=== PATIENT | female | born 1960 | race Hispanic/Latino ===

== ENCOUNTER 2017-11-11 13:16 | Outpatient (CLI) | payer MEDICAID ==
--- NOTE | 2017-11-12 00:18 | XRay Report ---
FINAL REPORT PROCEDURE: XR KNEE 4+V RT TECHNIQUE: RIGHT knee radiographs, AP, lateral and sunrise views. CPT 52535 HISTORY: RIGHT KNEE PAIN COMPARISON: No prior studies are available for comparison. FINDINGS: Fracture (s) and/or Dislocation(s): None . Alignment: Normal . 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 Soft tissues: There is generalized soft tissue swelling. There is no joint effusion.. Bone mineralization: Normal . Foreign bodies: None . IMPRESSION: There is no fracture or malalignment.. 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 There is generalized soft tissue swelling. There is no joint effusion..
== END 2017-11-11 13:17 | disposition home or self-care (01) ==
LOC: SPVIMAG 13:16
PROVIDERS: ATTEND Orthopaedic Surgery Sports Medicine
DX: M17.11 Unilateral primary osteoarthritis, right knee (principal)